=== PATIENT | male | born 1960 | race Caucasian/White ===

== ENCOUNTER 2018-07-31 20:07 | Emergency (ER) | payer MEDICARE, OTHER ==
[~2018-07-31] VITALS: Ht 177.8 cm; Wt 59.4 kg
[2018-07-31 20:10] VITALS: BP 153/103
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
[2018-07-31] MEDS ORDERED: KETOROLAC 30 MG/ML VIAL. IV ONE (21:00)
[2018-07-31] MEDS ORDERED: DIPHTH,PERTUSS(ACELL),TET TOX 0.5 ML DISP.SYRIN. VAX IM ONE (21:15)
[2018-07-31] MEDS ORDERED: VANCOMYCIN 1 GM in IV NORMAL SALINE 250ML 250 ML IV ONE (21:30)
[2018-07-31] MEDS ORDERED: IV NORMAL SALINE 250ML 250 ML ONE (22:07)
[2018-07-31] MEDS ORDERED: VANCOMYCIN 1 GM VIAL. ONE (22:07)
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
== END 2018-07-31 23:20 | disposition home or self-care (01) ==
LOC: ER 20:07
DX: S61.401A Unspecified open wound of right hand, initial encounter (principal); S01.301A Unspecified open wound of right ear, initial encounter; S01.00XA Unspecified open wound of scalp, initial encounter; F19.10 Other psychoactive substance abuse, uncomplicated; F15.10 Other stimulant abuse, uncomplicated; F14.10 Cocaine abuse, uncomplicated; Z91.19 Patient's noncompliance with other medical treatment and regimen; Z86.14 Personal history of Methicillin resistant Staphylococcus aureus infection; Z72.0 Tobacco use; Z88.8 Allergy status to other drugs, medicaments and biological substances; W34.09XA Accidental discharge from other specified firearms, initial encounter; Y93.89 Activity, other specified; Y92.89 Other specified places as the place of occurrence of the external cause; Y99.8 Other external cause status
CPT/HCPCS: 70250; 71046; 73130; 90471; 90715; 96365; 96366; 96375; 99283; J1885; J3370; J7050

== ENCOUNTER 2020-04-21 07:09 | Emergency (ER) | payer MEDICARE, OTHER ==
[~2020-04-21] VITALS: Ht 177.8 cm; Wt 61.3 kg
[2020-04-21 07:35] VITALS: BP 163/99
[2020-04-21] MEDS ORDERED: HYDROcodone/APAP 5/325MG 1 TAB TABLET PO ONE (07:45)
--- NOTE | 2020-04-21 07:46 | PHYS DOC ---
Past History Past Medical History: Other Past Surgical History: Tonsillectomy, Other Smoking: Non-smoker Alcohol Use: Occasionally Drug Use: None General Adult EDM: Chief Complaint: TESTICULAR PAIN OR INJURY HPI: HPI: History from patient. Patient is a 59-year-old male who presents with complaint of bilateral testicle pain and swelling. He states it began yesterday gradually. He states is progressively worsened. He has not tried any medicine prior to arrival. He states this happened once before several years ago. He states he presented to the emergency department and they stated there was something wrong with one of his veins. He never followed up with a urologist. He states that incident resolved on its own. States he is currently sexually active with one partner. Notes a history of STD 40 years ago. Denies penile pain or discharge. Denies redness or skin changes to the testicles. Denies vomiting or nausea. Denies fevers. Denies pain with bowel movement. He states sitting on toilet does seem to make the pain of his testicles worse. The pain is aching in nature. Review of Systems: Review of Systems: Constitutional: Denies fever or chills Eyes: Denies change in visual acuity HENT: Denies nasal congestion or sore throat Respiratory: Denies cough or shortness of breath Cardiovascular: Denies chest pain or edema GI: Denies abdominal pain, nausea, vomiting, bloody stools or diarrhea : Positive for testicle pain Musculoskeletal: Denies back pain or joint pain Integument: Denies rash Neurologic: Denies headache, focal weakness or sensory changes Endocrine: Denies polyuria or polydipsia Lymphatic: Denies swollen glands Psychiatric: Denies depression or anxiety Current Medications: Current Meds: Current Medications Medications (Trade) Dose Ordered Sig/Hemalatha Start Time Stop Time Status Last Admin Dose Admin Acetaminophen/ Hydrocodone Bitart (Lortab 5/325) 2 tab 1X ONCE 04/21/20 07:45 04/21/20 07:46 UNV Allergies: Allergies: Allergies Coded Allergies Type Severity Reaction Last Updated Verified duloxetine Allergy Unknown 07/31/18 Yes quetiapine Allergy Unknown 07/31/18 Yes trazodone Allergy Unknown 07/31/18 Yes Physical Exam: PE: Constitutional: Well developed, well nourished, no acute distress, non-toxic appearance. [] HENT: Normocephalic, atraumatic, bilateral external ears normal, oropharynx moist, no oral exudates, nose normal. [] Eyes: PERRLA, EOMI, conjunctiva normal, no discharge. [] Neck: Normal range of motion, no tenderness, supple, no stridor. [] Cardiovascular:Heart rate regular rhythm, no murmur [] Lungs & Thorax: Bilateral breath sounds clear to auscultation [] Abdomen: soft, no tenderness, no masses, no pulsatile masses. [] : Circumcised. No penile discharge or tenderness noted. Bilateral testicle tenderness. Cremasteric reflex intact bilaterally. No relief with elevation. Bilateral inguinal discomfort on palpation. No masses palpated. No obvious swelling appreciated. No skin changes noted. Skin: Warm, dry, no erythema, no rash. [] Back: No tenderness, no CVA tenderness. [] Extremities: No tenderness, no cyanosis, no clubbing, ROM intact, no edema. [] Neurologic: Alert and oriented X 3, normal motor function, normal sensory function, no focal deficits noted. [] Psychologic: Affect normal, judgement normal, mood normal. [] Current Patient Data: Vital Signs: Vital Signs Date Time Temp Pulse Resp B/P (MAP) Pulse Ox O2 Delivery O2 Flow Rate FiO2 04/21/20 08:10 16 98 04/21/20 07:35 97.3 108 16 163/99 (120) 98 EKG: EKG: [] Radiology/Procedures: Radiology/Procedures: [place] [address] IMAGING REPORT Signed PATIENT: EMILY CAMPOS ACCOUNT: [id number] : 1960 LOCATION: ER AGE: 59 SEX: M EXAM STATUS: REG ER ORD. PHYSICIAN: TROY FRAIRE DO REASON: b/lo testcile pain and swelling PROCEDURE: TESTICULAR/SCROTUM TESTICULAR/SCROTUM: 04/21/2020 7:41 AM INDICATION: 59 years old Male. Reason bilateral testicular pain. COMPARISON: None. FINDINGS: Right: Testicle: Normal in echotexture without focal lesion. Size: 4.2 x 2.5 x 1.7 cm. Flow: Normal color Doppler flow pattern. Epididymis: Normal in size and echotexture without focal lesion. Hydrocele: None. Varicocele: There is a varicocele with veins measuring up to 2 mm in diameter. Left: Testicle: Normal in echotexture without focal lesion. Size: 3.8 x 2.7 x 1.9 cm. Flow: Normal color Doppler flow pattern. Epididymis: Normal in size and echotexture without focal lesion. Hydrocele: None. Varicocele: Small varicocele with veins measuring up to 2 mm. IMPRESSION: Small bilateral varicoceles are present. No suspicious testicular mass. Electronically signed by: Capo Laird MD (04/21/2020 8:57 AM) [facility] DICTATED AND SIGNED BY: CAPO LAIRD MD DATE: 04/21/20856 CC: JOSEF REYNOSO MD; TROY FRAIRE DO ~MTH0 0 [] Heart Score: Risk Factors: Risk Factors: DM, Current or recent (<one month) smoker, HTN, HLP, family history of CAD, obesity. Risk Scores: Score 0 - 3: 2.5% MACE over next 6 weeks - Discharge Home Score 4 - 6: 20.3% MACE over next 6 weeks - Admit for Clinical Observation Score 7 - 10: 72.7% MACE over next 6 weeks - Early Invasive Strategies Course & Med Decision Making: Course & Med Decision Making Pertinent Labs and Imaging studies reviewed. (See chart for details) [] Patient is a pleasant 59-year-old male who presents with complaint of bilateral testicle pain that is been gradual in onset since yesterday. He notes history of similar issues and states he had a venous issue. Never received follow-up. Ultrasound today does show bilateral varicoceles. Good arterial flow to the testicles bilaterally. No signs of infection. Patient's pain was well controlled in the emergency department. He declined to provide urine sample. He does deny any dysuria however. Overall I do feel he is appropriate for discharge home. He will be given referral to urology. He was instructed on pelvic and scrotal supportive measures at home. He was encouraged to use [id number] anti-inflammatory medication for symptom relief. Return precautions discussed and understood. Stable for discharge home. Dragon Disclaimer: Mamadou Disclaimer: This electronic medical record was generated, in whole or in part, using a voice recognition dictation system. Departure Departure: Impression: Primary Impression: Varicocele Disposition: 01 DC HOME SELF CARE/HOMELESS Condition: STABLE Referrals: JOSEF REYNOSO MD (PCP) Additional Instructions: Dr. Reji Smith Md. Urology [address] [place] [address] Call [place] [phone] Scripts Ibuprofen (IBUPROFEN) 200 Mg Tablet 600 MG PO QIDPRN PRN for PAIN, #15 TAB Prov: TROY FRAIRE DO 04/21/20 TROY FRAIRE DO Apr 21, 2020 07:46
[2020-04-21] MEDS ORDERED: KETOROLAC 30 MG/ML VIAL. IM ONE (08:45)
[2020-04-21] MEDS ORDERED: IBUP-1673 PO (08:51)
--- NOTE | 2020-04-21 09:00 | RAD ---
TESTICULAR/SCROTUM: 04/21/2020 7:41 AM INDICATION: 59 years old Male. Reason bilateral testicular pain. COMPARISON: None. FINDINGS: Right: Testicle: Normal in echotexture without focal lesion. Size: 4.2 x 2.5 x 1.7 cm. Flow: Normal color Doppler flow pattern. Epididymis: Normal in size and echotexture without focal lesion. Hydrocele: None. Varicocele: There is a varicocele with veins measuring up to 2 mm in diameter. Left: Testicle: Normal in echotexture without focal lesion. Size: 3.8 x 2.7 x 1.9 cm. Flow: Normal color Doppler flow pattern. Epididymis: Normal in size and echotexture without focal lesion. Hydrocele: None. Varicocele: Small varicocele with veins measuring up to 2 mm. IMPRESSION: Small bilateral varicoceles are present. No suspicious testicular mass. Electronically signed by: Adelaida Proctor MD (04/21/2020 8:57 AM) [facility]
== END 2020-04-21 09:12 | disposition home or self-care (01) ==
LOC: ER 07:09
DX: I86.1 Scrotal varices (principal); Z88.8 Allergy status to other drugs, medicaments and biological substances
CPT/HCPCS: 76870; 96372; 99284; J1885

== ENCOUNTER 2020-06-12 15:43 | Emergency (ER) | payer MEDICARE, OTHER ==
[~2020-06-12] VITALS: Ht 177.8 cm; Wt 61.3 kg
[2020-06-12 15:43] VITALS: BP 138/86
[~2020-06-12 15:43] MED LIST: IBUP-1673 PO
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
[2020-06-12] MEDS ORDERED: ACETAMINOPHEN 500 MG TABLET PO ONE (17:15)
[2020-06-12] MEDS ORDERED: IBUPROFEN 600 MG TABLET. PO ONE (17:15)
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
== END 2020-06-12 18:52 | disposition home or self-care (01) ==
LOC: ER 15:43
DX: S00.83XA Contusion of other part of head, initial encounter (principal); Z88.8 Allergy status to other drugs, medicaments and biological substances; Y08.89XA Assault by other specified means, initial encounter; Y93.89 Activity, other specified; Y92.89 Other specified places as the place of occurrence of the external cause; Y99.8 Other external cause status
CPT/HCPCS: 70450; 70486; 99285-25

== ENCOUNTER 2020-08-29 19:46 | Emergency (ER) | payer MEDICARE, OTHER ==
[~2020-08-29] VITALS: Ht 177.8 cm; Wt 64.3 kg
[2020-08-29 20:27] VITALS: BP 134/83
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
== END 2020-08-29 21:13 | disposition home or self-care (01) ==
LOC: ER 19:46
DX: T40.691A Poisoning by other narcotics, accidental (unintentional), initial encounter (principal); R55 Syncope and collapse; Z88.8 Allergy status to other drugs, medicaments and biological substances; Y92.89 Other specified places as the place of occurrence of the external cause
CPT/HCPCS: 99283

== ENCOUNTER 2020-12-07 10:17 | Emergency (ER) | payer OTHER ==
[~2020-12-07] VITALS: Ht 182.9 cm; Wt 64.1 kg
--- NOTE | 2020-12-07 10:44 | PHYS DOC ---
Past History Past Medical History: HIV Past Surgical History: Spleenectomy, Other Additional Past Surgical Histo: Back Smoking: Non-smoker Alcohol Use: None Drug Use: None General Adult EDM: Chief Complaint: WEAKNESS/GENERALIZED HPI: HPI: 60-year-old male presents with intermittent diarrhea for the last 1 week. He was seen here by his primary care physician for labs and IV hydration. The patient's last episode of diarrhea was this morning. He admits that he may not drink as much fluids as he should. He has been eating without difficulty. He has had no vomiting. Denies fever or chills. He has felt some generalized fatigue. Review of Systems: Review of Systems: Constitutional: Denies fever or chills. Fatigue Eyes: Denies change in visual acuity HENT: Denies nasal congestion or sore throat Respiratory: Denies cough or shortness of breath Cardiovascular: Denies chest pain or edema GI: Nonbloody diarrhea. Denies abdominal pain, nausea, vomiting. : Denies dysuria Musculoskeletal: Denies back pain or joint pain Integument: Denies rash Neurologic: Denies headache, focal weakness or sensory changes Endocrine: Denies polyuria or polydipsia Lymphatic: Denies swollen glands Psychiatric: Denies depression or anxiety Allergies: Allergies: Allergies Coded Allergies Type Severity Reaction Last Updated Verified duloxetine Allergy Unknown 07/31/18 Yes quetiapine Allergy Unknown 07/31/18 Yes trazodone Allergy Unknown 07/31/18 Yes Physical Exam: PE: Constitutional: Well developed, well nourished, no acute distress, non-toxic appearance. [] HENT: Normocephalic, atraumatic, bilateral external ears normal, oropharynx moist, no oral exudates, nose normal. [] Eyes: PERRLA, EOMI, conjunctiva normal, no discharge. [] Neck: Normal range of motion, no tenderness, supple, no stridor. [] Cardiovascular: Heart rate regular rhythm, no murmur [] Lungs & Thorax: Bilateral breath sounds clear to auscultation [] Abdomen: Bowel sounds normal, soft, no tenderness, no masses, no pulsatile mas ses. [] Skin: Warm, dry, no erythema, no rash. [] Back: No tenderness, no CVA tenderness. [] Extremities: No tenderness, no cyanosis, no clubbing, ROM intact, no edema. [] Neurologic: Alert and oriented X 3, normal motor function, normal sensory function, no focal deficits noted. [] Psychologic: Affect normal, judgement normal, mood normal. [] Current Patient Data: Vital Signs: Vital Signs Date Time Temp Pulse Resp B/P (MAP) Pulse Ox O2 Delivery O2 Flow Rate FiO2 12/07/20 10:25 98.2 99 16 132/95 98 Room Air EKG: EKG: Sinus rhythm, rate 82, normal axis, no ST elevation or depression. [] Radiology/Procedures: Radiology/Procedures: [] Impressions: EXAMINATION: XR CHEST 1V CLINICAL HISTORY: Weakness EXAM DATE/TIME: 12/07/2020 10:30 AM COMPARISON: 07/31/2018 FINDINGS: Lines, Tubes, and Devices: None. Cardiomediastinal Silhouette: Normal heart size. Aortic atherosclerotic calcification. Lungs and Pleura: No evidence of focal airspace consolidation or pleural effusion. Pulmonary vasculature unremarkable. Bones and Soft Tissues: Similar-appearing dextroscoliotic curvature of the thoracic spine with left-sided surgical surendra. IMPRESSION: No evidence of acute cardiopulmonary abnormality or significant interval change. Electronically signed by: Uday Shetty DO (12/07/2020 10:52 AM) [id number] DICTATED AND SIGNED BY: UDAY SHETTY DO DATE: 12/07/20 1050 CC: PATRICK NÚÑEZ DO; JOSEF REYNOSO MD ~MTH0 0 Heart Score: C/O Chest Pain: N/A Risk Factors: Risk Factors: DM, Current or recent (<one month) smoker, HTN, HLP, family history of CAD, obesity. Risk Scores: Score 0 - 3: 2.5% MACE over next 6 weeks - Discharge Home Score 4 - 6: 20.3% MACE over next 6 weeks - Admit for Clinical Observation Score 7 - 10: 72.7% MACE over next 6 weeks - Early Invasive Strategies Course & Med Decision Making: Course & Med Decision Making Pertinent Labs and Imaging studies reviewed. (See chart for details) EKG is unremarkable. CBC is unremarkable. Chest x-ray is negative for acute findings. The patient's CMP is unremarkable. He required 2 L and nearly 3 hours to urinate. His urinalysis is negative for infection. It appears the patient was rather dehydrated. He is stable for discharge at this time. [] Dragon Disclaimer: Dragon Disclaimer: This electronic medical record was generated, in whole or in part, using a voice recognition dictation system. Departure Departure: Impression: Primary Impression: Dehydration Disposition: 01 HOME / SELF CARE / HOMELESS Condition: STABLE Referrals: JOSEF REYNSOO MD (PCP) Patient Instructions: Dehydration, Adult, [id number] PATRICK NÚÑEZ DO Dec 07, 2020 10:44
[2020-12-07] MEDS ORDERED: IV NORMAL SALINE 1,000ML 1,000 ML IV ONE (10:45)
--- NOTE | 2020-12-07 10:54 | RAD ---
EXAMINATION: XR CHEST 1V CLINICAL HISTORY: Weakness EXAM DATE/TIME: 12/07/2020 10:30 AM COMPARISON: 07/31/2018 FINDINGS: Lines, Tubes, and Devices: None. Cardiomediastinal Silhouette: Normal heart size. Aortic atherosclerotic calcification. Lungs and Pleura: No evidence of focal airspace consolidation or pleural effusion. Pulmonary vasculat ure unremarkable. Bones and Soft Tissues: Similar-appearing dextroscoliotic curvature of the thoracic spine with left-s ided surgical surendra. IMPRESSION: No evidence of acute cardiopulmonary abnormality or significant interval change. Electronically signed by: Joseph Pickering DO (12/07/2020 10:52 AM) [id number]
[2020-12-07 11:29] LABS: BASO # 0.1 x10^3/uL (0.0-0.2); BASO % 1 % (0-3); EOS # 0.2 x10^3/uL (0.0-0.7); EOS % 3 % (0-3); HEMATOCRIT 40.4 % (39.0-53.0); HEMOGLOBIN 13.5 g/dL (13.0-17.5); LYMPH # 2.2 x10^3/uL (1.0-4.8); LYMPH % 37 % (24-48); MEAN CORPUSCULAR HEMOGLOBIN 31 pg (25-35); MEAN CORPUSCULAR HGB CONC 33 g/dL (31-37); MEAN CORPUSCULAR VOLUME 93 fL (79-100); MONO % 16 % (0-9); NEUT # 2.7 x10^3uL (1.8-7.7); NEUT % 43 % (31-73); PLATELET COUNT 378 x10^3/uL (140-400); RED BLOOD COUNT 4.36 x10^6/uL (4.30-5.70); RED CELL DISTRIBUTION WIDTH 14.9 % (11.5-14.5); WHITE BLOOD COUNT 6.2 x10^3/uL (4.0-11.0)
[2020-12-07 12:21] LABS: CALCIUM 8.7 mg/dL (8.5-10.1); CREATININE 1.3 mg/dL (0.7-1.3); GFR 56.1; POTASSIUM 3.9 mmol/L (3.5-5.1)
[2020-12-07 12:28] LABS: ALBUMIN 3.6 g/dL (3.4-5.0); ALBUMIN/GLOBULIN RATIO 1.1 (1.0-1.7); TOTAL BILIRUBIN 0.5 mg/dL (0.2-1.0)
[2020-12-07 14:48] LABS: BILIRUBIN,URINE NEG (NEG); CLARITY,URINE CLEAR; COLOR,URINE YELLOW; GLUCOSE,URINE NEG (NEG); NITRITE,URINE NEG (NEG); UROBILINOGEN,URINE 0.2 mg/dL (0.2 mg/dL)
[2020-12-07 14:49] LABS: BACTERIA,URINE 0 /HPF (0-FEW); RBC,URINE 0 /HPF (0-2); WBC,URINE RARE /HPF (0-4)
[2020-12-07 15:04] VITALS: BP 128/89
--- NOTE | 2020-12-08 00:43 | EKG ---
[address] [address] Test Date: 2020-12-07 Test Time: 12:07:44 Pat Name: EMILY CAMPOS Department: Room: Gender: M Social [employer] Content Specialist: ROCÍO : 1960 Requested By: PATRICK NÚÑEZ Order Number: [id number] Reading MD: Measurements Intervals [place] Rate: 82 P: 52 AR: 136 QRS: 30 QRSD: 84 T: 54 QT: 356 QTc: 419 Interpretive Statements SINUS RHYTHM NORMAL ECG RI6.02 No previous ECG available for comparison
== END 2020-12-07 15:04 | disposition home or self-care (01) ==
LOC: ER 10:17
DX: E86.0 Dehydration (principal); Z88.8 Allergy status to other drugs, medicaments and biological substances
CPT/HCPCS: 36415; 71045; 80053; 81001; 84484; 85025; 93005; 96360; 96361; 99285; J7030

== ENCOUNTER 2021-08-10 17:58 | Emergency (ER) | payer OTHER | END 2021-08-10 18:25 | disposition left against medical advice (07) | LOC: ER 17:58 | DX: R41.82 Altered mental status, unspecified (principal); Z53.21 Procedure and treatment not carried out due to patient leaving prior to being seen by health care provider ==

== ENCOUNTER 2021-09-06 09:05 | Emergency (ER) | payer OTHER ==
[~2021-09-06] VITALS: Ht 177.8 cm; Wt 63.0 kg
--- NOTE | 2021-09-06 09:22 | PHYS DOC ---
Past History Past Medical History: Anxiety, HIV, Hepatitis Past Surgical History: Spleenectomy, Other Additional Past Surgical Histo: Back Smoking: Non-smoker Alcohol Use: None Drug Use: None General Adult EDM: Chief Complaint: MECHANICAL FALL HPI: HPI: Patient is a 60-year-old male who is brought in by EMS for evaluation after he fell. He was at the [facility] and had just finished swimming, he was bending down to put his clothes back on, he slipped and fell backward and hit the back of his head. He reports that he lost consciousness for an unknown meter of time. He reports that he when he awoke he had posterior scalp pain, neck pain and low back pain. He has a history of chronic low back pain, he had Franklin rods placed many decades ago. He denies numbness or tingling or fo su motor weakness. He does not describe any premonitory symptoms. It sounds like it was a mechanical slip and fall. He denies vision loss, vision changes, chest pain, dyspnea, palpitations, abdominal pain, nausea or vomiting. He was unable to get up on his own without significant pain, so EMS was called. He reports that he had been feeling well leading up to this event. He does not take anticoagulant medications. Review of Systems: Review of Systems: Constitutional: Denies fever or chills Eyes: Denies change in visual acuity HENT: Denies nasal congestion or sore throat Respiratory: Denies cough or shortness of breath Cardiovascular: Denies chest pain or edema GI: Denies abdominal pain, nausea, vomiting, denies stool incontinence : Denies urinary symptoms, denies urinary incontinence Musculoskeletal: Low back pain, neck pain, denies joint pain or swelling. Integument: Denies rash, wounds, abrasions or lacerations Neurologic: Reports posterior scalp pain/headache pain. He does report head in jury and loss of consciousness. Denies syncope, dizziness, vertigo. Denies numbness or tingling or focal motor weakness. Psychiatric: Anxiety Allergies: Allergies: Allergies Coded Allergies Type Severity Reaction Last Updated Verified duloxetine Allergy Unknown 07/31/18 Yes quetiapine Allergy Unknown 07/31/18 Yes trazodone Allergy Unknown 07/31/18 Yes Physical Exam: PE: Constitutional: Well developed, well nourished, no acute distress, non-toxic appearance. [] HENT: There is a subtle right-sided posterior occipital soft tissue hematoma. No open wounds or lacerations. No significant bruising. No palpable step-offs or deformity noted. Oropharynx is patent and clear, no dental trauma, mucous members are moist. No facial or oral trauma noted. External ears normal bilaterally. TMs are clear bilaterally. No hemotympanum. No otorrhea. Nares are patent clear without rhinorrhea or epistaxis. Eyes: PERRL, EOMI, conjunctiva normal, no discharge. No nystagmus. No periorbital edema or erythema or contusion. Neck: Normal range of motion, trachea is midline, no JVD, no deformity. No midline tenderness or step-offs. Bilateral paraspinal soft tissue tenderness of the lower cervical spine is noted. Cardiovascular:Heart rate regular rhythm, +2 radial and +2 posterior tibial pulses bilaterally. Lungs & Thorax: Lungs are clear to auscultation bilaterally without rales, rhonchi or wheezes. No evidence of chest wall trauma or deformity. No evidence of respiratory distress Abdomen: Abdomen is soft, nondistended, nontender to palpation. No flank abdominal ecchymoses, no evidence of trauma. No CVA tenderness. No palpable masses organomegaly. Skin: Warm, dry, no erythema, no rash, no lacerations or abrasions. No open wounds. No contusions. Back: Diffuse lumbar midline and paraspinal tenderness. There is a subtle area of midline soft tissue swelling around L1. No visible contusions, abrasions, erythema or lacerations. Mildly limited range of motion secondary to pain. No acute deformity is noted. Extremities: No tenderness, no cyanosis, no clubbing, ROM intact, no edema. Pelvis is stable. No limb deformity. Full pain this range of motion of all joints of the bilateral upper and lower extremities. Neurologic: Alert and oriented X 3, normal motor function, normal sensory function, no focal deficits noted. 5 out of 5 motor strength all 4 extremities. DTR 2/ 4 bilateral lower extremities, sensations grossly intact, speech is clear and fluent. No limb ataxia. Gait is slightly antalgic but steady, no gait ataxia is noted. Psychologic: Anxious, cooperative. EKG: EKG: EKG is interpreted at 0955 Rhythm is sinus Rate is 75 bpm Nettie is normal No STEMI Radiology/Procedures: Radiology/Procedures: IMAGING REPORT Signed PATIENT: EMILY CAMPOS ACCOUNT: [id number] : 1960 LOCATION: ER AGE: 60 SEX: M EXAM STATUS: REG ER ORD. PHYSICIAN: ANNE-MARIE MONTILLA DO REASON: fall, head injury, neck pain, +LOC PROCEDURE: CT HEAD AND CERVICAL SPINE WO CT HEAD AND C-SPINE WO History: Fall. Head injury. Neck pain. Comparison: CT head 06/12/2020. Technique: Noncontrast CT of the head and cervical spine. Findings: CT HEAD: There is no evidence for intracranial mass or hemorrhage. There is no hydrocephalus or midline shift. No abnormal extra-axial fluid collections are present. No evidence of acute territorial infarction. The visualized paranasal sinuses and mastoid air cells are clear. The skull and scalp are within normal limits. CT CERVICAL SPINE: There is no evidence for fracture in the cervical spine. Focal reversal the normal cervical lordosis apex at C6. No spondylolisthesis. Multilevel degenerative disc and facet hypertrophy. Ankylosis across C5-C6. Uncovertebral hypertrophy greatest at C4-C5 causing severe right neural foraminal stenosis and narrowing the spinal canal to approximately 7 mm AP. No destructive osseous lesions are seen. Limited evaluation of the soft tissues of the neck and of the upper chest is unremarkable. Impression: 1. No acute intracranial findings. 2. No acute osseous abnormality in the cervical spine. 3. Degenerative changes in the cervical spine. Uncovertebral hypertrophy causing severe right neural foraminal stenosis at C4-C5. Correlate for radiculopathy. ------- Exposure: One or more of the following individualized dose reduction techniques were utilized for this examination: 1. Automated exposure control 2. Adjustment of the mA and/or kV according to patient size 3. Use of iterative reconstruction technique. Electronically signed by: Andrei Bernard MD (09/06/2021 11:01 AM) [id number] DICTATED AND SIGNED BY: ANDREI BERNARD MD DATE: 09/06/21 1054 CC: JOSEF REYNOSO MD; ANNE-MARIE MONTILLA DO ~ IMAGING REPORT Signed PATIENT: EMILY CAMPOS ACCOUNT: [id number] : 1960 LOCATION: ER AGE: 60 SEX: M EXAM STATUS: REG ER ORD. PHYSICIAN: ANNE-MARIE MONTILLA DO REASON: fall, head injury, neck pain, +LOC PROCEDURE: CT LUMBAR SPINE WO CONTRAST CT THORACIC SPINE WO, CT LUMBAR SPINE WO History: Fall. Back pain. Technique: Noncontrast CT was performed of the thoracic and lumbar spine. Multiplanar reconstructions were performed. Comparison: CT abdomen and pelvis 02/01/2016. Findings: There are 12 rib-bearing thoracic vertebral bodies and 5 nonrib-bearing lumbar type vertebral bodies. Dextroconvex curvature of the thoracolumbar spine with left Franklin surendra from the level of T5-L2. There is long segment osseous fusion of the posterior elements along the Franklin surendra. Small bridging syndesmophytes in the v ertebral bodies along this margin. No acute fracture. Schmorl's nodes and superior endplate depression of the L4 vertebral body is unchanged from 2016. Multilevel lower lumbar facet hypertrophy. Degenerative disc space narrowing L2-L3, L3-L4 and L4-L5. The paraspinal soft tissues are unremarkable. Impression: 1. No acute findings in the thoracic and lumbar spine. 2. Dextroconvex thoracolumbar scoliosis with left Franklin surendra fixation T5-L2 with osseous fusion across these levels. 3. Degenerative disc and facet disease of lower lumbar spine. Exposure: One or more of the following individualized dose reduction techniques were utilized for this examination: 1. Automated exposure control 2. Adjustment of the mA and/or kV according to patient size 3. Use of iterative reconstruction technique. Electronically signed by: Andrei Bernard MD (09/06/2021 10:54 AM) [id number] DICTATED AND SIGNED BY: ANDREI BERNARD MD DATE: 09/06/21 1037 CC: JOSEF REYNOSO MD; ANNE-MARIE MONTILLA DO ~ Heart Score: C/O Chest Pain: No Risk Factors: Risk Factors: DM, Current or recent (<one month) smoker, HTN, HLP, family history of CAD, obesity. Risk Scores: Score 0 - 3: 2.5% MACE over next 6 weeks - Discharge Home Score 4 - 6: 20.3% MACE over next 6 weeks - Admit for Clinical Observation Score 7 - 10: 72.7% MACE over next 6 weeks - Early Invasive Strategies Course & Med Decision Making: Course & Med Decision Making Pertinent Labs and Imaging studies reviewed. (See chart for details) The patient is given IV fentanyl, IV Toradol and p.o. [place]. C-collar removed, C-spine cleared. Radiographs indicate no acute fracture or acute abnormality. The patient reports feeling much better. I discussed the findings, differential diagnosis and plan of care with him. He is able to ambulate without difficulty. I told him to contact his PCP for follow-up. Strict return precautions are given. He verbalizes understanding. He is discharged in stable and improved condition. Dragon Disclaimer: Dragon Disclaimer: This electronic medical record was generated, in whole or in part, using a voice recognition dictation system. Departure Departure: Impression: Primary Impression: Fall Qualified Codes: W19.XXXA - Unspecified fall, initial encounter Additional Impressions: Scalp contusion Qualified Codes: S00.03XA - Contusion of scalp, initial encounter Low back pain Qualified Codes: M54.50 - Low back pain, unspecified Disposition: HOME / SELF CARE / HOMELESS Condition: STABLE Referrals: JOSEF REYNOSO MD (PCP) Patient Instructions: Facial or Scalp Contusion, Fall Prevention and Home Safety, Low Back Sprain with [facility] Additional Instructions: Use the pain medicine as needed/as directed. Return for new injury or trauma, focal weakness, you lose control of your bowel or bladder function, if you develop chest pain, shortness of breath, severe abdominal pain, uncontrolled vomiting, more severe headache pain, or for any other concerns. Contact your primary care doctor for follow-up. Scripts Hydrocodone Bit/Acetaminophen (HYDROCODONE-APAP 5-325 ) 1 Each Tablet 1 TAB PO PRN Q6HRS PRN for PAIN, #15 TAB 0 Refills Prov: ANNE-MARIE MONTILLA DO 09/06/21 ANNE-MARIE MONTILLA DO Sep 06, 2021 09:22
--- NOTE | 2021-09-06 10:57 | RAD ---
CT THORACIC SPINE WO, CT LUMBAR SPINE WO History: Fall. Back pain. Technique: Noncontrast CT was performed of the thoracic and lumbar spine. Multiplanar reconstructions were performed. Comparison: CT abdomen and pelvis 02/01/2016. Findings: There are 12 rib-bearing thoracic vertebral bodies and 5 nonrib-bearing lumbar type vertebral bodies. Dextroconvex curvature of the thoracolumbar spine with left Franklin surendra from the level of T5-L2. T here is long segment osseous fusion of the posterior elements along the Franklin surendra. Small bridgin g syndesmophytes in the vertebral bodies along this margin. No acute fracture. Schmorl's nodes and superior endplate depression of the L4 vertebral body is uncha nged from 2016. Multilevel lower lumbar facet hypertrophy. Degenerative disc space narrowing L2-L3, L 3-L4 and L4-L5. The paraspinal soft tissues are unremarkable. Impression: 1. No acute findings in the thoracic and lumbar spine. 2. Dextroconvex thoracolumbar scoliosis with left Franklin surendra fixation T5-L2 with osseous fusion across these levels. 3. Degenerative disc and facet disease of lower lumbar spine. Exposure: One or more of the following individualized dose reduction techniques were utilized for thi s examination: 1. Automated exposure control 2. Adjustment of the mA and/or kV according to patient size 3. Use of iterative reconstruction technique. Electronically signed by: Andrei Santoyo MD (09/06/2021 10:54 AM) [id number]
--- NOTE | 2021-09-06 11:03 | RAD ---
CT HEAD AND C-SPINE WO History: Fall. Head injury. Neck pain. Comparison: CT head 06/12/2020. Technique: Noncontrast CT of the head and cervical spine. Findings: CT HEAD: There is no evidence for intracranial mass or hemorrhage. There is no hydrocephalus or midline shift. No abnormal extra-axial fluid collections are present. No evidence of acute territorial infarction. The visualized paranasal sinuses and mastoid air cells are clear. The skull and scalp are within normal limits. CT CERVICAL SPINE: There is no evidence for fracture in the cervical spine. Focal reversal the normal cervical lordosis apex at C6. No spondylolisthesis. Multilevel degenerative disc and facet hypertrophy. Ankylosis across C5-C6. Uncovertebral hypertrophy greatest at C4-C5 causing severe right neural foraminal stenosis and narrowing the spinal canal to a pproximately 7 mm AP. No destructive osseous lesions are seen. Limited evaluation of the soft tissues of the neck and of the upper chest is unremarkable. Impression: 1. No acute intracranial findings. 2. No acute osseous abnormality in the cervical spine. 3. Degenerative changes in the cervical spine. Uncovertebral hypertrophy causing severe right neural foraminal stenosis at C4-C5. Correlate for radiculopathy. ------- Exposure: One or more of the following individualized dose reduction techniques were utilized for thi s examination: 1. Automated exposure control 2. Adjustment of the mA and/or kV according to patient size 3. Use of iterative reconstruction technique. Electronically signed by: Andrei Santoyo MD (09/06/2021 11:01 AM) [id number]
[2021-09-06 11:14] LABS: BASO # 0.1 x10^3/uL (0.0-0.2); BASO % 1 % (0-3); EOS # 0.1 x10^3/uL (0.0-0.7); EOS % 1 % (0-3); HEMATOCRIT 42.1 % (39.0-53.0); HEMOGLOBIN 13.9 g/dL (13.0-17.5); LYMPH # 2.1 x10^3/uL (1.0-4.8); LYMPH % 29 % (24-48); MEAN CORPUSCULAR HEMOGLOBIN 31 pg (25-35); MEAN CORPUSCULAR HGB CONC 33 g/dL (31-37); MEAN CORPUSCULAR VOLUME 93 fL (79-100); MONO % 14 % (0-9); NEUT # 4.1 x10^3uL (1.8-7.7); NEUT % 56 % (31-73); PLATELET COUNT 283 x10^3/uL (140-400); RED BLOOD COUNT 4.54 x10^6/uL (4.30-5.70); RED CELL DISTRIBUTION WIDTH 14.8 % (11.5-14.5); WHITE BLOOD COUNT 7.3 x10^3/uL (4.0-11.0)
[2021-09-06 11:27] LABS: CALCIUM 8.8 mg/dL (8.5-10.1); CREATININE 1.3 mg/dL (0.7-1.3); GFR 56.1; POTASSIUM 4.5 mmol/L (3.5-5.1)
[2021-09-06 11:33] LABS: ALBUMIN 3.6 g/dL (3.4-5.0); MAGNESIUM 2.3 mg/dL (1.8-2.4); TOTAL BILIRUBIN 0.6 mg/dL (0.2-1.0); TOTAL PROTEIN 7.3 g/dL (6.4-8.2)
[2021-09-06] MEDS ORDERED: IV NORMAL SALINE 1,000ML 1,000 ML IV ONE (11:45)
[2021-09-06] MEDS ORDERED: KETOROLAC 15 MG/ML VIAL. IVP ONE (11:45)
--- NOTE | 2021-09-06 12:58 | EKG ---
[address] [address] Test Date: 2021-09-06 Test Time: 09:41:32 Pat Name: EMILY CAMPOS Department: Room: Gender: M Insulator Apprentice: WENDI : 1960 Requested By: ANNE-MARIE MONTILLA Order Number: [id number] Reading MD: Darron Garg Measurements Intervals [place] Rate: 75 P: OK: QRS: 45 QRSD: 86 T: 54 QT: 370 QTc: 416 Interpretive Statements SINUS RHYTHM Electronically Signed On 09-07-2021 13:20:37 CDT by Darron Garg
[2021-09-06] MEDS ORDERED: HYDROcodone/APAP 5/325MG 1 TAB TABLET PO ONE (13:00)
[2021-09-06 13:22] VITALS: BP 127/78
[2021-09-06] MEDS ORDERED: HYDR-2155 PO (13:36)
== END 2021-09-06 13:46 | disposition home or self-care (01) ==
LOC: ER 09:05
DX: S00.03XA Contusion of scalp, initial encounter (principal); M54.59 Other low back pain; M54.2 Cervicalgia; F41.9 Anxiety disorder, unspecified; Z88.8 Allergy status to other drugs, medicaments and biological substances; W01.198A Fall on same level from slipping, tripping and stumbling with subsequent striking against other object, initial encounter; Y93.89 Activity, other specified; Y92.89 Other specified places as the place of occurrence of the external cause; Y99.8 Other external cause status
CPT/HCPCS: 36415; 70450; 72125; 72128; 72131; 80053; 82550; 83735; 84100; 84484; 85025; 85610; 85730; 93005; 96361; 96374; 96375; 99285; J1885; J3010; J7030

== ENCOUNTER → 2021-09-18 | Outpatient (CLI) | payer OTHER ==
[2021-09-06 13:22] VITALS: BP 127/78
[~2021-09-18] MED LIST changes: +HYDR-2155 PO
--- NOTE | 2021-09-18 15:12 | RAD ---
Ultrasound of the abdomen 09/18/2021 CLINICAL HISTORY: Hepatitis C. TECHNIQUE: A real-time ultrasound examination of the abdomen was performed. Multiple images were obta ined. FINDINGS: Comparison is made to the patient's CT scan of the abdomen dated 02/01/2016. The gallbladder is well-distended. No gallstones are visualized. The gallbladder wall thickness is wi thin normal limits. No pericholecystic fluid is seen. The common bile duct measures 5 mm in diameter which is within normal limits. The liver is normal in size measuring 14.3 cm in length. No focal abnormality of the liver is seen. T he spleen is not visualized consistent with a splenectomy. The pancreas is not well-visualized due to overlying bowel gas. Both kidneys are within normal limits in size and echogenicity. The right kidne y measures 9.6 cm in length. The left kidney measures 9.9 cm in length. There is no evidence of hydro nephrosis. The abdominal aorta tapers normally. The inferior vena cava is within normal limits. No free fluid is seen. IMPRESSION: 1. Post splenectomy. 2. Otherwise negative study. Electronically signed by: Yakov Graham MD (09/18/2021 3:10 PM) [id number]
== END ==
LOC: US 09:47
PROVIDERS: ATTEND Internal Medicine Gastroenterology
DX: B19.20 Unspecified viral hepatitis C without hepatic coma (principal); K82.8 Other specified diseases of gallbladder; Z90.81 Acquired absence of spleen
CPT/HCPCS: 76700

== ENCOUNTER → 2021-09-27 | Outpatient (CLI) | payer OTHER ==
[2021-09-06 13:22] VITALS: BP 127/78
[2021-09-27 16:41] LABS: ALBUMIN 3.5 g/dL (3.4-5.0); ALBUMIN/GLOBULIN RATIO 0.9 (1.0-1.7); CALCIUM 9.1 mg/dL (8.5-10.1); CREATININE 1.1 mg/dL (0.7-1.3); GFR 67.8; POTASSIUM 4.1 mmol/L (3.5-5.1); TOTAL BILIRUBIN 0.4 mg/dL (0.2-1.0); TOTAL PROTEIN 7.4 g/dL (6.4-8.2)
[2021-09-27 18:40] LABS: BASO # 0.1 x10^3/uL (0.0-0.2); BASO % 1 % (0-3); EOS # 0.2 x10^3/uL (0.0-0.7); EOS % 4 % (0-3); HEMATOCRIT 45.6 % (39.0-53.0); HEMOGLOBIN 14.8 g/dL (13.0-17.5); LYMPH # 1.9 x10^3/uL (1.0-4.8); LYMPH % 40 % (24-48); MEAN CORPUSCULAR HEMOGLOBIN 31 pg (25-35); MEAN CORPUSCULAR HGB CONC 32 g/dL (31-37); MEAN CORPUSCULAR VOLUME 96 fL (79-100); MONO # 0.5 x10^3/uL (0.0-1.1); MONO % 12 % (0-9); NEUT % 43 % (31-73); PLATELET COUNT 291 x10^3/uL (140-400); RED BLOOD COUNT 4.76 x10^6/uL (4.30-5.70); RED CELL DISTRIBUTION WIDTH 15.5 % (11.5-14.5); WHITE BLOOD COUNT 4.7 x10^3/uL (4.0-11.0)
[2021-09-28 05:11] LABS: ALPHA 1 ANTITRYPSIN 129 mg/dL (101-187)
[2021-09-29 09:23] LABS: CERULOPLASMIN 24.4 mg/dL (16.0-31.0)
== END ==
LOC: LAB 15:40
PROVIDERS: ATTEND Internal Medicine Gastroenterology
DX: B19.20 Unspecified viral hepatitis C without hepatic coma (principal); Z79.899 Other long term (current) drug therapy
CPT/HCPCS: 36415; 80053; 82103; 82390; 82728; 85025; 86695; 87340; 87522